=== PATIENT | male | born 1940 | race African-American/Black ===

== ENCOUNTER 2020-05-21 23:55 | Observation (INO) | payer OTHER ==
--- OUTSIDE RECORDS SUMMARY | 2020-05-21 23:57 | XMS REPORT | Continuity of Care Document ---
:1940 Author Organization [facility] t Address [address] [place] [address] Care Team Providers Name Role Phone Unavailable Unavailable Unavailable Problems This patient has no known problems. Allergies, Adverse Reactions, Alerts This patient has no known allergies or adverse reactions. Medications This patient has no known medications. Procedures This patient has no known procedures. Encounters Start End Encounter Admission Attending Care Care Encounter Source Date/Time Date/Time Type Type Clinicians Facility Department ID 2018-08-07 Outpatient [facility] [address] [facility] 11:12:32 2018-08-06 Outpatient [facility] [address] [facility] 16:08:46 2019-04-30 2019-04-30 Outpatient [facility] [address] [facility] 10:39:00 10:39:00 2019-03-17 2019-03-17 Outpatient [facility] [id number] [facility] 09:45:00 09:45:00 2018-11-06 2018-11-06 Outpatient [facility] [address] [facility] 09:15:00 09:15:00 2018-08-07 2018-08-07 Outpatient [facility] [address] [facility] 09:39:00 09:39:00 Results This patient has no known results.
[2020-05-22] MEDS ORDERED: D50W 50 ML IV ONE ×2 (00:25→06:29)
[2020-05-22 00:35] LABS: Absolute Lymphocytes (CBC) 0.5 K/uL (0.7-4.9); Basophils % 0.4 % (0-1.3); Hematocrit 27.4 % (39.6-49.0); Lymphocytes % 8.9 % (15.3-44.8); MPV 8.7 fL (7.6-11.3); RBC Red Blood Cell Count 3.66 M/uL (4.33-5.43)
[2020-05-22 00:38] LABS: Protime INR 1.21
[2020-05-22] MEDS ORDERED: ACETAMINOPHEN 500 MG TAB ONE ×3 (00:48→16:18)
[2020-05-22 01:03] LABS: Albumin 2.5 g/dL (3.4-5.0); Bilirubin Direct 0.1 mg/dL (0-0.2); Bilirubin Total 0.4 mg/dL (0.2-1.0); Potassium 3.8 mmol/L (3.5-5.1); Protein, Total 6.8 g/dL (6.4-8.2); Troponin (Emerg Dept Use Only) 0.03 ng/mL (0.0-0.045)
--- NOTE | 2020-05-22 03:20 | ER ---
Nurse's Notes [facility] Name: Waylon Morse Jr Age: 79 yrs Sex: Male : 1940 Arrival Date: 05/22/2020 Time: 00:00 Bed 5 Private MD: Diagnosis: Hypoglycemia, unspecified;Fall Presentation: 05/22 00:01 Chief complaint: Patient states: WEAKNESS AND PAIN ON BOTH KNEES. EMS states: FROM [facility], PATIENT FELL OUT OF BED, NO LOC, HEMATOMA ON THE FOREHEAD. Coronavirus screen: Client denies travel out of the [place] in the last 14 days. Ebola Screen: No symptoms or risks identified at this time. Initial Sepsis Screen: Does the patient meet any 2 criteria? No. Patient's initial sepsis screen is negative. Does the patient have a suspected source of infection? No. Patient's initial sepsis screen is negative. Risk Assessment: Do you want to hurt yourself or someone else? Patient reports no desire to harm self or others. Onset of symptoms is unknown. 00:01 Method Of Arrival: EMS: [facility] 00:01 Acuity: VERONIQUE 3 rv Triage Assessment: 00:06 General: Appears comfortable, Behavior is calm, cooperative. Pain: Complains of pain in rv right knee and left knee. EENT: No signs and/or symptoms were reported regarding the EENT system. Neuro: Level of Consciousness is awake, alert, obeys commands, Oriented to person, place, time, situation. Cardiovascular: Patient's skin is warm and dry. Respiratory: Airway is patent Respiratory effort is even, unlabored, Breath sounds are clear bilaterally. Derm: Skin is intact. Musculoskeletal: Swelling present in forehead. Historical: - Allergies: 00:06 No Known Allergies; rv - Home Meds: 01:10 zinc sulfate 220 (50) mg Oral cap daily [Active]; ascorbic acid (vitamin C) 500 mg tab lp1 daily [Active]; Santyl 250 unit/gram Topical oint once daily [Active]; Coreg 3.125 mg Oral tab 1 tab 2 times per day [Active]; clopidogrel 75 mg oral tab 1 tab once daily [Active]; Levemir 100 unit/mL subcutaneous soln 5 unit nightly [Active]; sodium bicarbonate 650 mg Oral tab twice a day [Active]; Levemir 100 unit/mL subcutaneous soln 12 unit daily [Active]; tamsulosin 0.4 mg oral cp24 1 cap once daily [Active]; Veltassa 8.4 gram oral pwpk 1 packet once daily [Active]; tacrolimus 1 mg oral cap 5 cap every 12 hours [Active]; aspirin 81 mg Oral TbEC 1 tab once daily [Active]; sennosides 8.6 mg oral tab 2 tabs twice a day [Active]; insulin lispro subcutaneous subcutaneous [Active]; polyethylene glycol 3350 miscellaneous powd daily [Active]; - PMHx: 00:06 Diabetes - NIDDM; rv 01:03 Gout; rr5 - PSHx: 01:03 kidney transplant 7 years ago; av fistula left arm; rr5 - Immunization history:: Adult Immunizations up to date. - Social history:: Smoking status: Patient/guardian denies using tobacco, the patient reports quitting approximately 40 years ago. Screenin:07 Abuse screen: Denies threats or abuse. Denies injuries from another. Nutritional rv screening: No deficits noted. Tuberculosis screening: No symptoms or risk factors identified. Fall Risk Fall in past 12 months (25 points). Secondary diagnosis (15 points) impaired mobility, No IV (0 pts). Ambulatory Aid- Crutches/Cane/Walker (15 pts). Gait- Impaired (20 pts.). Mental Status- Overestimates/Forgets Limitations (15 pts.). Total Villa Fall Scale indicates High Risk Score (45 or more points). Fall prevention measures have been instituted. Side Rails Up X 2 Placed Close to Nursing Station Frequent Obs/Assessments Occuring As available patient and family educated on Fall Prevention Program and Strategies. Assessment: 00:25 Reassessment: BS 47 mg/Dl ED provider informed with order made and carried out. glucose rr5 test per protocol taken from [facility] order- specimen sent. 01:00 Reassessment: [id number] tim . rr5 02:25 Reassessment: Patient appears in no apparent distress at this time. Patient and/or rr5 family updated on plan of care and expected duration. Pain level reassessed. Patient is alert, oriented x 3, equal unlabored respirations, skin warm/dry/pink. family member tim [phone] updated that patient will be admitted and for the plan of care. 03:35 Reassessment: DR BELLA MARTÍNEZ, DR MERRITT, DR BENOIT, Leeroy BRAVO, DR HARDY. rr5 Vital Signs: 00:01 BP 129 / 70; Pulse 70; Resp 18; Pulse Ox 100% ; Weight 86.18 kg; Height 6 ft. 2 in. rv (187.96 cm); 01:50 BP 121 / 55; Pulse 71; Resp 16; Temp 98; Pulse Ox 100% ; rr5 02:30 BP 123 / 64; Pulse 72; Resp 19; Pulse Ox 100% ; rr5 00:01 Body Mass Index 24.39 (86.18 kg, 187.96 cm) rv ED Course: 00:00 Patient arrived in ED. rv 00:05 Triage completed. rv 00:05 Tuan Rudolph MD is Attending Physician. mh7 00:07 Arm band placed on right wrist. Patient placed in the treatment room, on a stretcher, rv Patient notified of wait time. 00:08 Ruben Tony RN is Primary Nurse. rv 00:08 Patient has correct armband on for positive identification. Placed in gown. Bed in low rv position. Call light in reach. Side rails up X 1. Pulse ox on. NIBP on. 00:20 Inserted saline lock: 20 gauge in right hand, using aseptic technique. Blood collected. rr5 01:10 CT Head Brain wo Cont In Process Unspecified. EDMS 02:04 Knee Right 3 View XRAY In Process Unspecified. EDMS 02:04 Knee Left 3 View XRAY In Process Unspecified. EDMS 03:09 Inserted saline lock: 20 gauge in right antecubital area, using aseptic technique. rv 03:19 Joelle Hdez MD is Hospitalizing Provider. mh7 04:34 No provider procedures requiring assistance completed. Patient maintains SpO2 rr5 saturation greater than 95% on room air. 04:34 Patient admitted, IV remains in place. intact, No redness/swelling at site. rr5 Administered Medications: 00:26 Drug: D50W 50 ml Route: IVP; Site: right hand; rr5 01:30 Follow up: Response: No adverse reaction; Blood sugar is elevated rr5 00:42 Drug: Tylenol 1000 mg Route: PO; rv 01:30 Follow up: Response: No adverse reaction rr5 03:08 Drug: D50W 50 ml Route: IVP; Site: right antecubital; rv 04:37 Follow up: Response: No adverse reaction; Blood sugar is elevated rr5 Outcome: 03:20 Decision to Hospitalize by Provider. 7 04:34 Admitted to ER Hold. Please see [facility] for further documentation. rr5 04:34 Condition: stable 04:34 Instructed on the need for admit. 16:25 Patient left the ED. Signatures: Dispatcher [employer] EDMS Giuliana Nolan RN RN lp1 Bhavya Ybarra RN RN Ruben Tony RN RN Dameon Claros RN RN rr5 Tuan Rudolph MD MD 7
--- NOTE | 2020-05-22 03:20 | EDPHYS ---
Physician Documentation [facility] Name: Waylon Morse Jr Age: 79 yrs Sex: Male : 1940 Arrival Date: 05/22/2020 Time: 00:00 Bed 5 Private MD: ED Physician Tuan Rudolph HPI: 05/22 00:39 This 79 yrs old Black Male presents to ER via EMS with complaints of Fall. mh7 00:39 Details of fall: The patient fell from a supine position, out of bed. Onset: The 7 symptoms/episode began/occurred today. Associated injuries: The patient sustained injury to the head, contusion, swelling, left knee and right knee, contusion. Severity of symptoms: At their worst the symptoms were mild, earlier today, in the emergency department the symptoms are unchanged. Patient sent from nursing care facility after he fell out of his bed while lying down.. Historical: - Allergies: 00:06 No Known Allergies; rv - Home Meds: 01:10 zinc sulfate 220 (50) mg Oral cap daily [Active]; ascorbic acid (vitamin C) 500 mg tab lp1 daily [Active]; Santyl 250 unit/gram Topical oint once daily [Active]; Coreg 3.125 mg Oral tab 1 tab 2 times per day [Active]; clopidogrel 75 mg oral tab 1 tab once daily [Active]; Levemir 100 unit/mL subcutaneous soln 5 unit nightly [Active]; sodium bicarbonate 650 mg Oral tab twice a day [Active]; Levemir 100 unit/mL subcutaneous soln 12 unit daily [Active]; tamsulosin 0.4 mg oral cp24 1 cap once daily [Active]; Veltassa 8.4 gram oral pwpk 1 packet once daily [Active]; tacrolimus 1 mg oral cap 5 cap every 12 hours [Active]; aspirin 81 mg Oral TbEC 1 tab once daily [Active]; sennosides 8.6 mg oral tab 2 tabs twice a day [Active]; insulin lispro subcutaneous subcutaneous [Active]; polyethylene glycol 3350 miscellaneous powd daily [Active]; - PMHx: 00:06 Diabetes - NIDDM; rv 01:03 Gout; rr5 - PSHx: 01:03 kidney transplant 7 years ago; av fistula left arm; rr5 - Immunization history:: Adult Immunizations up to date. - Social history:: Smoking status: Patient/guardian denies using tobacco, the patient reports quitting approximately 40 years ago. ROS: 00:39 Constitutional: Negative for fever, chills, and weight loss, Eyes: Negative for injury, mh7 pain, redness, and discharge, ENT: Negative for injury, pain, and discharge, Neck: Negative for injury, pain, and swelling, Cardiovascular: Negative for chest pain, palpitations, and edema, Respiratory: Negative for shortness of breath, cough, wheezing, and pleuritic chest pain, Abdomen/GI: Negative for abdominal pain, nausea, vomiting, diarrhea, and constipation, Back: Negative for injury and pain, : Negative for injury, bleeding, discharge, and swelling, Skin: Negative for injury, rash, and discoloration, Psych: Negative for depression, anxiety, suicide ideation, homicidal ideation, and hallucinations, Allergy/Immunology: Negative for hives, rash, and allergies, Endocrine: Negative for neck swelling, polydipsia, polyuria, polyphagia, and marked weight changes, Hematologic/Lymphatic: Negative for swollen nodes, abnormal bleeding, and unusual bruising. Exam: 00:39 Constitutional: This is a well developed, well nourished patient who is awake, alert, mh7 and in no acute distress. 00:39 Eyes: Pupils equal round and reactive to light, extra-ocular motions intact. Lids and lashes normal. Conjunctiva and sclera are non-icteric and not injected. Cornea within normal limits. Periorbital areas with no swelling, redness, or edema. ENT: Nares patent. No nasal discharge, no septal abnormalities noted. Tympanic membranes are normal and external auditory canals are clear. Oropharynx with no redness, swelling, or masses, exudates, or evidence of obstruction, uvula midline. Mucous membranes moist. Neck: Trachea midline, no thyromegaly or masses palpated, and no cervical lymphadenopathy. Supple, full range of motion without nuchal rigidity, or vertebral point tenderness. No Meningismus. Chest/axilla: Normal chest wall appearance and motion. Nontender with no deformity. No lesions are appreciated. Cardiovascular: Regular rate and rhythm with a normal S1 and S2. No gallops, murmurs, or rubs. Normal PMI, no JVD. No pulse deficits. Respiratory: Lungs have equal breath sounds bilaterally, clear to auscultation and percussion. No rales, rhonchi or wheezes noted. No increased work of breathing, no retractions or nasal flaring. Abdomen/GI: Soft, non-tender, with normal bowel sounds. No distension or tympany. No guarding or rebound. No evidence of tenderness throughout. Back: No spinal tenderness. No costovertebral tenderness. Full range of motion. 00:39 Head/face: Noted is contusion, that is superficial, of the forehead, swelling, that is mild, of the forehead, tenderness, that is mild, of the forehead. Vital Signs: 00:01 BP 129 / 70; Pulse 70; Resp 18; Pulse Ox 100% ; Weight 86.18 kg; Height 6 ft. 2 in. rv (187.96 cm); 01:50 BP 121 / 55; Pulse 71; Resp 16; Temp 98; Pulse Ox 100% ; rr5 02:30 BP 123 / 64; Pulse 72; Resp 19; Pulse Ox 100% ; rr5 00:01 Body Mass Index 24.39 (86.18 kg, 187.96 cm) rv MDM: 03:17 Differential diagnosis: closed head injury, contusion, fracture, sprain. Data reviewed: [facility] vital signs, nurses notes, EMS record, detention records, lab test result(s), CBC, electrolytes, EKG, radiologic studies, CT scan, plain films. Data interpreted: Pulse oximetry: on room air is 100 %. Interpretation: normal. Counseling: I had a detailed discussion with the patient and/or guardian regarding: the historical points, exam findings, and any diagnostic results supporting the discharge/admit diagnosis, lab results, radiology results, the need for further work-up and treatment in the hospital. Response to treatment: the patient's symptoms have mildly improved after treatment. 03:20 Patient medically screened. [facility] 05/22 00:08 Order name: Basic Metabolic Panel; Complete Time: [facility] 05/22 00:08 Order name: CBC with Diff; Complete Time: [facility] 05/22 00:08 Order name: Type And Screen; Complete Time: 02:30 [facility] 05/22 00:08 Order name: LFT's; Complete Time: [facility] 05/22 00:08 Order name: Protime (+inr); Complete Time: 01:14 7 05/22 00:08 Order name: Ptt, Activated; Complete Time: 01:14 7 05/22 00:09 Order name: Glucose 05/22 00:10 Order name: Glucose Level; Complete Time: 01:14 EDMS 05/22 00:21 Order name: Glucose, Ancillary Testing; Complete Time: 00:38 EDMS 05/22 00:23 Order name: Glucose, Ancillary Testing EDMS 05/22 00:41 Order name: Troponin (Emerg Dept Use Only); Complete Time: 01:14 EDMS 05/22 01:32 Order name: Glucose, Ancillary Testing; Complete Time: 02:02 EDMS 05/22 02:34 Order name: Troponin (emerg Dept Use Only) 05/22 00:06 Order name: CT Head Brain wo Cont 7 05/22 00:06 Order name: Knee Right 3 View XRAY 7 05/22 00:06 Order name: Knee Left 3 View XRAY [facility] 05/22 00:08 Order name: Labs collected and sent; Complete Time: 00:26 7 05/22 03:05 Order name: Glucose, Ancillary Testing; Complete Time: 03:09 EDMS 05/22 04:53 Order name: Glucose, Ancillary Testing EDMS 05/22 04:57 Order name: SARS-COV-2 RT PCR EDIN 05/22 06:18 Order name: Glucose, Ancillary Testing EDIN 05/22 08:35 Order name: Glucose, Ancillary Testing EDMS 05/22 09:11 Order name: Glucose, Ancillary Testing EDMS 05/22 12:36 Order name: Glucose, Ancillary Testing EDIN 05/22 00:08 Order name: EKG - Nurse/Tech; Complete Time: 02:22 7 05/22 03:26 Order name: Misc. Order: Please feed patient ; Complete Time: 03:47 la1 Administered Medications: 00:26 Drug: D50W 50 ml Route: IVP; Site: right hand; rr5 01:30 Follow up: Response: No adverse reaction; Blood sugar is elevated rr5 00:42 Drug: Tylenol 1000 mg Route: PO; rv 01:30 Follow up: Response: No adverse reaction rr5 03:08 Drug: D50W 50 ml Route: IVP; Site: right antecubital; rv 04:37 Follow up: Response: No adverse reaction; Blood sugar is elevated rr5 Disposition: 05/22/20 03:20 Hospitalization ordered by Joelle Hdez for Observation. Preliminary diagnosis are Hypoglycemia, unspecified, Fall. - Bed requested for Telemetry/MedSurg (observation). - Status is Observation. hb - Condition is Stable. - Problem is new. - Symptoms have improved. Signatures: Dispatcher [employer] EDMS Giuliana Nolan, RN RN lp1 Enmanuel Orta, BATCH BLENDER-C BATCH BLENDER-Cla1 Anabel Ivan RN RN cg Bhavya Ybarra, RN RN hb Kaiser, Maxwell, RN RN ja1 Ruben Tony, RN MARCIAL rv Dameon Harper RN RN rr5 Tuan Rudolph MD MD 7 Corrections: (The following items were deleted from the chart) 00:41 00:38 TROPONIN (EMERG DEPT USE ONLY)+C.LAB.BRZ ordered. EDMS EDMS 03:22 03:10 CORONAVIRUS+MR.LAB.BRZ ordered. EDIN EDMS 04:14 03:20 Hospitalization Ordered by Joelle Hdez MD for Observation. Preliminary cg diagnosis is Hypoglycemia, unspecified; Fall. Bed requested for Telemetry/MedSurg (observation). Status is Observation. Condition is Stable. Problem is new. Symptoms have improved. 7 14:34 04:14 05/22/2020 03:20 Hospitalization Ordered by Joelle Hdez MD for Observation. ja1 Preliminary diagnosis is Hypoglycemia, unspecified; Fall. Bed requested for [facility] ER HOLD. Status is Observation. Condition is Stable. Problem is new. Symptoms have improved. cg 16:25 14:34 05/22/2020 03:20 Hospitalization Ordered by Joelle Hdez MD for Observation. hb Preliminary diagnosis is Hypoglycemia, unspecified; Fall. Bed requested for Telemetry/MedSurg (observation). Status is Observation. Condition is Stable. Problem is new. Symptoms have improved. ja1
[2020-05-22] MEDS ORDERED: D50W 25 GM/50 ML SYRINGE IV ONE (03:22)
--- NOTE | 2020-05-22 03:40 | P.HP ---
Certification for Inpatient Patient admitted to: Observation With expected LOS: <2 Midnights Patient will require the following post-hospital care: None Practitioner: I am a practitioner with admitting privileges, knowledge of patient current condition, hospital course, and medical plan of care. Services: Services provided to patient in accordance with Admission requirements found in Title 42 Section 412.3 of the Code of Federal Regulations <Enmanuel Orta - Last Filed: 05/22/20 03:34> Patient History Date of Service: 05/22/20 Primary Care Provider: halfway doctor Reason for admission: Hypoglycemia History of Present Illness: 79-year-old male with history of diabetes mellitus type 2, hypertension, hyperlipidemia, CHF, CKD S/P renal transplant 7 years prior, gout presents to the emergency department after [facility]. Is alert, oriented x3, patient reports he thinks he is sleeping and woke up while he was sliding off the bed, complaining of bilateral knee pain and head pain, CT head without acute findings, an x-ray of the knees unremarkable. P atient found to be hypoglycemic upon arrival to the emergency department with blood sugar of 46. Patient was fed, given juice blood sugar recheck 76 1 hr later but went back down again to 47. Patient does take both long-acting and short-acting insulin, unknown when his last dose was or how much was received. ED provider wishes to admit patient under observation for close blood sugar monitoring over the next few hr. Patient's initially requested transfer to [facility] as this is where he has his transplant team at but after case was described to her she change her mind and wanted him to stay here. Patient's creatinine 1.3, GFR 61 baseline GFR appears to be around 70. Patient does also appear to follow Dr. Mathew or at least has in the past. Will admit for further evaluation and management. - Past Medical/Surgical History Diabetic: Yes -: Diabetes mellitus type 2 -: CKD S/P renal transplant 2014 -: CHF-unknown EF -: Hypertension -: Hyperlipidemia -: Gout -: TIA -: CAD S/P CABG x3 -: 3 vessel CABG -: Renal transplant 2014 -: Cholecystectomy -: Prostatectomy Psychosocial/ Personal History: [facility] in [facility] - Family History Family History: Reviewed- Non-Contributory - Social History Smoking Status: Former smoker Smoking therapy provided: No Alcohol use: No CD- Drugs: No Caffeine use: Yes Place of Residence: Home <Enmanuel Orta - Last Filed: 05/22/20 03:34> Date of Service: 05/22/20 <Joelle Hdez - Last Filed: 06/12/20 04:22> Review of Systems 10-point ROS is otherwise unremarkable General: Weakness, Malaise <Enmanuel Orta - Last Filed: 05/22/20 03:34> Physical Examination - Physical Exam General: Alert, In no apparent distress, Oriented x3 HEENT: Atraumatic, PERRLA, Other (Mucous membranes dry) Neck: Supple, 2+ carotid pulse no bruit, No LAD Respiratory: Clear to auscultation bilaterally, Normal air movement Cardiovascular: Regular rate/rhythm, Normal S1 S2 Gastrointestinal: Normal bowel sounds, No tenderness Musculoskeletal: No tenderness Integumentary: No rashes Neurological: Normal speech, Normal affect - Studies Laboratory Data (last 24 hrs) 05/22/20 00:20: Glucose 48 L* 05/22/20 00:20: PT 13.9 H, INR 1.21, APTT 29.5 05/22/20 00:20: WBC 5.40 D, Hgb 8.9 L, Hct 27.4 L, Plt Count 185 05/22/20 00:20: Sodium 136, Potassium 3.8, BUN 42 H D, Creatinine 1.38 H, Glucose 46 L*, Total Bilirubin 0.4, AST 24, ALT 14, Alkaline Phosphatase 67 <Enmanuel Orta - Last Filed: 05/22/20 03:34> Assessment and Plan - Plan Assessment Diabetes mellitus type 2-insulin dependent with hypoglycemia CKD S/P renal transplant 2013 CAD S/P three-vessel CABG CHF-unknown EF Hypertension Hyperlipidemia Gout Plan Diabetes mellitus type 2-insulin dependent with hypoglycemia: Will provide patient with a being diet, will have him eat now, q.2h Accu-Cheks x2, if stable increase duration. Hold off on insulin therapy at this time, unknown how much insulin was given or at what time. Obtain and continue home medications as ap propriate. Heparin 5000 subcutaneous twice daily for DVT prophylaxis. CKD S/P renal transplant 2013: Renal function relatively stable when compared to baseline from previous labs. Patient does see Dr. mathew locally, nephrology consult as necessary, continue gentle hydration. CAD S/P three-vessel CABG, CHF-unknown EF, Hypertension,Hyperlipidemia, Gout: Stable, continue home meds. Discharge Plan: [facility] Plan to discharge in: 24 Hours - Advance Directives Does patient have a Living Will: No Does patient have a Durable POA for Healthcare: No - Code Status/Comfort Care Code Status Assessed: Yes (Full code) Critical Care: No Time Spent Managing Pts Care (In Minutes): 55 <Enmanuel Orta - Last Filed: 05/22/20 03:34> Date of Service: 05/22/20 Patient was admitted after falling. Patient with hypoglycemia. Patient will be admitted for observation. <Joelle Hdez - Last Filed: 06/12/20 04:22>
[2020-05-22] MEDS ORDERED: NA CHLORIDE 0.9% 1,000 ML IV SCH (04:33)
[2020-05-22] MEDS ORDERED: D50W 25 GM/50 ML SYRINGE IV PRN (04:33)
[2020-05-22] MEDS ORDERED: ONDANSETRON 4 MG/2 ML VIAL IV PRN (04:33)
[2020-05-22] MEDS ORDERED: ACETAMINOPHEN 500 MG TAB PO PRN (04:33)
[2020-05-22 04:42] VITALS: BMI 24.3
[2020-05-22] MEDS ORDERED: D5 0.45 NS 1,000 ML IV SCH (06:19)
[2020-05-22] MEDS ORDERED: D5 0.45 NS 1,000 ML IV ONE (06:29)
[2020-05-22] MEDS ORDERED: PNEUMOCOCCAL VACCINE 0.5 ML IMVAC ONE ×2 (09:00→10:10)
[2020-05-22] MEDS ORDERED: HEPARIN 5000 UNIT/ML 1 ML VIAL SQ SCH (09:00)
[2020-05-22] MEDS ORDERED: dexAMETHasone 10 MG/ML VIAL ONE (10:09)
[2020-05-22] MEDS ORDERED: HEPARIN 5000 UNIT/ML 1 ML VIAL ONE (10:09)
[2020-05-22 10:33] VITALS: O2SAT 100
--- NOTE | 2020-05-22 12:11 | RAD REPORT ---
EXAM DESCRIPTION: Knee Left 3 View CLINICAL HISTORY: Trauma/pain COMPARISON: None. FINDINGS: 3 views of the left knee. No acute fracture or dislocation. Osteopenia. Atherosclerotic va scular calcification. Mild 3 compartment joint space narrowing. Surgical clips in the medial soft tis sues at the level of the tibia. IMPRESSION: 1. No acute fracture or dislocation. Electronically signed by: Daniel Hernadez 05/22/2020 2:29 AM NIGHTCLUB MANAGER Due to temporary technical issues with the PACS/Fluency reporting system, reports are being signed by the in house radiologist without review as a courtesy to ensure prompt reporting. The interpreting r adiologist is fully responsible for the content of the report.
--- NOTE | 2020-05-22 12:12 | RAD REPORT ---
EXAM DESCRIPTION: Knee Right 3 View CLINICAL HISTORY: Trauma/pain COMPARISON: None. FINDINGS: 3 views of the right knee. No acute fracture or dislocation. Osteopenia. Atherosclerotic v ascular calcification. Mild 3 compartment joint space narrowing. IMPRESSION: 1. No acute fracture or dislocation. Electronically signed by: Daniel Hernadez 05/22/2020 2:28 AM GEOLOGICAL ENGINEERING TEACHER Due to temporary technical issues with the PACS/Fluency reporting system, reports are being signed by the in house radiologist without review as a courtesy to ensure prompt reporting. The interpreting r adiologist is fully responsible for the content of the report.
--- NOTE | 2020-05-22 12:13 | RAD REPORT ---
EXAM DESCRIPTION: CT of the head without contrast CLINICAL HISTORY: TRAUMA/pain COMPARISON: None available TECHNIQUE: Axial CT of the head obtained from the skull apex to the skull base without contrast. FINDINGS: No acute intracranial hemorrhage identified. No mass, mass effect, shift of the midline, a bnormal extra-axial fluid collection or CT evidence of acute ischemic change identified. The ventricu lar system and sulcal spaces are mildly enlarged compatible with mild cerebral atrophy. Scattered a reas of hypodensity throughout the supratentorial white matter are nonspecific and may be related to chronic small vessel ischemic change. The visualized paranasal sinuses and mastoid air cells are well aerated. No skull fracture identifi ed. Visualized orbits and globes are unremarkable. Atherosclerotic calcification of the intracranial internal carotid arteries. Contusion in the right posterior scalp soft tissues. IMPRESSION: 1. No acute intracranial abnormality by CT criteria. This exam was performed according to our departmental dose-optimization program, which includes autom ated exposure control, adjustment of the mA and/or kV according to patient size and/or use of iterati ve reconstruction technique. Electronically signed by: Daniel Hernadez 05/22/2020 1:26 AM VETERINARY PRACTICE MANAGER Due to temporary technical issues with the PACS/Fluency reporting system, reports are being signed by the in house radiologist without review as a courtesy to ensure prompt reporting. The interpreting r adiologist is fully responsible for the content of the report.
[2020-05-22] MEDS ORDERED: D50W 25 GM/50 ML VIAL IV PRN (15:00)
[2020-05-22 18:11] VITALS: BP 139/50; TEMP 97.8
[2020-05-22] MEDS ORDERED: Tacrolimus [Prograf] 1 MG Capsule PO SCH (21:00)
[2020-05-22] MEDS ORDERED: SODIUM BICARB 325 MG TAB PO SCH (21:00)
[2020-05-22] MEDS ORDERED: carvediloL 3.125 MG TAB PO SCH (21:00)
[2020-05-22] MEDS ORDERED: SENOSIDES 8.6 MG TAB PO SCH (21:00)
[2020-05-23] MEDS ORDERED: ZINC SULFATE 220 MG CAP PO SCH (09:00)
[2020-05-23] MEDS ORDERED: CLOPIDOGREL 75 MG TABLET PO SCH (09:00)
[2020-05-23] MEDS ORDERED: HOME MED 1 EA UNK (Zinc [Zinc] 50 MG Tablet) PO SCH (09:00)
[2020-05-23] MEDS ORDERED: POLYETHYL GLY 3350 17 GM/DOSE PO SCH (09:00)
[2020-05-23] MEDS ORDERED: ASCORBIC ACID 500 MG TABLET PO SCH (09:00)
[2020-05-23] MEDS ORDERED: TAMSULOSIN 0.4 MG SR CAP PO SCH (09:00)
[2020-05-23] MEDS ORDERED: Patiromer Calcium Sorbitex [Veltassa] 8.4 GM Powd.Pack PO SCH (09:00)
[2020-05-23] MEDS ORDERED: ASPIRIN EC 81 MG TAB PO SCH (09:00)
--- NOTE | 2020-06-12 04:13 | P.DS ---
Discharge Date: 05/22/20 Primary Care Provider: shelter doctor Disposition: TRANSFER TO [facility] Discharge Condition: GOOD Reason for Admission: Hypoglycemia Brief History of Present Illness: 79-year-old male with history of diabetes mellitus type 2, hypertension, hyperlipidemia, CHF, CKD S/P renal transplant 7 years prior, gout presents to the emergency department after falling out of bed at the [facility]. Is alert, oriented x3, patient reports he thinks he is sleeping and woke up while he was sliding off the bed, complaining of bilateral knee pain and head pain, CT head without acute findings, an x-ray of the knees unremarkable. Patient found to be hypoglycemic upon arrival to the emergency department with blood sugar of 46. Patient was fed, given juice blood sugar recheck 76 1 hr later but went back down again to 47. Patient does take both long-acting and short-acting insulin, unknown when his last dose was or how much was received. ED provider wishes to admit patient under observation for close blood sugar monitoring over the next few hr. Patient's initially requested transfer to [facility] as this is where he has his transplant team at but after case was described to her she change her mind and wanted him to stay here. Patient's creatinine 1.3, GFR 61 baseline GFR appears to be around 70. Patient does also appear to follow Dr. Mathew or at least has in the past. Will admit for further evaluation and management. Hospital Course: Patient blood sugars were stabilized. At this time patient is stable for discharge. Patient getting Lantus twice daily and will change it to once daily. Vital Signs/Physical Exam: Temp Pulse Resp BP Pulse Ox 97.8 F 80 19 139/50 L 96 05/22/20 17:30 05/22/20 17:30 05/22/20 17:30 05/22/20 17:30 05/22/20 17:30 General: Alert, In no apparent distress, Oriented x3 Laboratory Data at Discharge: WBC 5.40 K/uL (4.3-10.9) D 05/22/20 00:20 Hgb 8.9 g/dL (13.6-17.9) L 05/22/20 00:20 Hct 27.4 % (39.6-49.0) L 05/22/20 00:20 Plt Count 185 K/uL (152-406) 05/22/20 00:20 PT 13.9 SECONDS (9.5-12.5) H 05/22/20 00:20 INR 1.21 05/22/20 00:20 APTT 29.5 SECONDS (24.3-36.9) 05/22/20 00:20 Sodium 136 mmol/L (136-145) 05/22/20 00:20 Potassium 3.8 mmol/L (3.5-5.1) 05/22/20 00:20 BUN 42 mg/dL (7-18) H D 05/22/20 00:20 Creatinine 1.38 mg/dL (0.55-1.3) H 05/22/20 00:20 Glucose 46 mg/dL (74-106) L* 05/22/20 00:20 Glucose 48 mg/dL (74-106) L* 05/22/20 00:20 Total Bilirubin 0.4 mg/dL (0.2-1.0) 05/22/20 00:20 AST 24 U/L (15-37) 05/22/20 00:20 ALT 14 U/L (12-78) 05/22/20 00:20 Alkaline Phosphatase 67 U/L (45-117) 05/22/20 00:20 Home Medications: Ascorbic Acid 500 mg PO DAILY 05/22/20 Aspirin [Low Dose Aspirin EC] 81 mg PO DAILY 05/22/20 Clopidogrel Bisulfate [Plavix*] 75 mg PO DAILY 05/22/20 Insulin Detemir [Levemir] 5 unit SQ BEDTIME 05/22/20 Insulin Detemir [Levemir] 5 unit SQ DAILY #1 vial 05/22/20 Na Bicarb Tab [Sodium Bicarb 325 MG Tab*] 650 mg PO BID 05/22/20 Patiromer Calcium Sorbitex [Veltassa] 8.4 gm PO DAILY 05/22/20 Polyethyl Gly 3350 [Glycolax*] 17 gm PO DAILY 05/22/20 Sennosides 17.2 mg PO BID 05/22/20 Tacrolimus [Prograf] 5 mg PO BID 05/22/20 Tamsulosin HCl 0.4 mg PO DAILY 05/22/20 Zinc 50 mg PO DAILY 05/22/20 carvediloL [Coreg*] 3.125 mg PO BID 05/22/20 New Medications: Insulin Detemir [Levemir] 5 unit SQ DAILY #1 vial Physician Discharge Instructions: -OK TO DC IV AND DC HOME -FOLLOW-UP WITH PCP IN 1-2 DAYS -PLEASE MAKE SURE ALL DIAGNOSTIC STUDIES ARE AVAILABLE AND HAVE BEEN REVIEWED WITH PATIENT PRIOR TO DISCHARGE -RETURN TO THE ER IF symptoms worsened -CALL DR. MACIAS AT [phone] IF ANY QUESTIONS REGARDING HOSPITAL STAY Diet: ADA Activity: Fall precautions Followup: Ray Lema MD [ACTIVE - CAN ADMIT] - Unknown,U [Primary Care Provider] -
== END 2020-05-22 20:50 ==
LOC: ER 23:55 → ERHOLD 05-22 03:24 → 2ND 05-22 15:59
PROVIDERS: ADMIT Hospitalist; ATTEND Hospitalist
DX: E11.649 Type 2 diabetes mellitus with hypoglycemia without coma (principal); I11.0 Hypertensive heart disease with heart failure; I50.9 Heart failure, unspecified; Z94.0 Kidney transplant status; Z20.822 Contact with and (suspected) exposure to COVID-19; E78.5 Hyperlipidemia, unspecified; M10.9 Gout, unspecified; I25.10 Atherosclerotic heart disease of native coronary artery without angina pectoris; Z95.1 Presence of aortocoronary bypass graft; Z23 Encounter for immunization; Z86.73 Personal history of transient ischemic attack (TIA), and cerebral infarction without residual deficits; M25.561 Pain in right knee; M25.562 Pain in left knee; R51.9 Headache, unspecified; Z87.891 Personal history of nicotine dependence; Z79.4 Long term (current) use of insulin; W06.XXXA Fall from bed, initial encounter; Y92.122 Bedroom in nursing home as the place of occurrence of the external cause
CPT/HCPCS: 93005; 85025; 80048; 36415; 86900; 86850; 82947 ×10; 85610; 86901; 80076; 85730; 83036; 84484 ×2; 70450; 73562 ×2; 90471; 90732; U0003; J1644; J7799; 99285; G0378; J1100